=== PATIENT | male | born 1985 | race Caucasian/White ===

== ENCOUNTER 2021-11-14 19:08 | Emergency (ER) | payer OTHER, MEDICAID, SELFPAY ==
[2021-11-14 19:27] VITALS: BP 148/93; PULSE 112; RESP 20; TEMP 36.8; O2SAT 96; BMI 19.8
--- NOTE | 2021-11-14 19:35 | DI.CT.S_ITS ---
PROCEDURE: CT LUMBAR SPINE W CON INDICATIONS: recent injury after fall, now leg is weak, numb, loss bowel TECHNIQUE: After the administration of intravenous Isovue contrast, 3 mm thick sections acquired through the levels of interest. Sagittal and coronal reformats were then constructed. For radiation dose reduction, the following was used: automated exposure control. COMPARISON: Outside Film, MR, MR LUMBAR SPINE WITH/WITHOUT CONTRAST, 10/27/2021, 10:46. FINDINGS: Image quality: Excellent. Bones: There is a mild leftward curvature of the thoracolumbar spine centered at L3. Minimal retrolisthesis redemonstrated at L2-L3. No vertebral body compression fractures. No subluxation. There is a small broad-based disc bulge at L5-S1 with a focal disc extrusion eccentric to the left. There is associated narrowing of the left lateral recess with suspected mass effect on the descending left S1 nerve root. Findings are similar to the recent prior MRI. There is moderate to severe left neural foraminal narrowing at L5-S1 with mild narrowing on the right. Small disc bulges are also demonstrated at L3-L4 and L4-5 with minimal spinal canal narrowing at L4-5. Mild bilateral neural foraminal narrowing also demonstrated at L4-5. Soft tissues: There is segmental wall thickening of the rectosigmoid colon with mild pericolonic fat stranding. No intraperitoneal free fluid. The aorta is normal in caliber. Visualized lung bases are clear. IMPRESSION: 1. Focal disc extrusion eccentric to the left at L5-S1 with associated narrowing of the left lateral recess and suspected mass effect on the descending left S1 nerve root. 2. Moderate to severe left neural foraminal narrowing at L5-S1. Dictated by: Ty Lindo M.D. on 11/14/2021 at 20:48 Approved by: Ty Lindo M.D. on 11/14/2021 at 20:55
[2021-11-14 19:55] LABS: Add Manual Diff / Slide Review NO; Basophils Absolute Auto 100 /uL (0-100); Basophils Percent Auto 0.8 % (0-2); Eosinophils Absolute Auto 0 /uL (0-450); Eosinophils Percent Auto 0.3 % (2-4); Hematocrit 41.5 % (41-53); Hemoglobin 14.4 g/dL (13.5-17.5); Lymphocytes Absolute Auto 2700 /uL (1100-4500); Lymphocytes Percent Auto 24.7 % (25-40); Mean Corpuscular HGB Conc 34.7 % (30-36); Mean Corpuscular Hemoglobin 30.1 PG (26-34); Mean Corpuscular Volume 86.8 fL (80-100); Monocytes Absolute Auto 1200 /uL (0-900); Monocytes Percent Auto 10.9 % (3-14); Neutrophils Absolute Auto 6900 /uL (1500-7000); Neutrophils Percent Auto 63.3 % (50-75); Platelet Count 350 X10^3/uL (150-400); Red Blood Cell Count 4.78 X10^6/uL (4.5-5.9); White Blood Cell Count 10.8 X10^3/uL (4.5-11.0)
[2021-11-14 20:12] LABS: Alanine Aminotransferase 27 IU/L (<50); Albumin 4.7 g/dL (3.5-5.0); Albumin Globulin Ratio 1.3 (1.0-2.8); Alkaline Phosphatase 72 U/L (38-126); Aspartate Aminotransferase 54 IU/L (17-59); BUN Creatinine Ratio 22.3 (6-22); Blood Urea Nitrogen 21 mg/dL (9-20); Calcium 9.1 mg/dL (8.4-10.2); Carbon Dioxide 21 mmol/L (22-32); Chloride 105 mmol/L (98-107); Estimated Glomerular Filt Rate > 60 mL/min (>60); Globulin 3.7 g/dL (1.7-4.1); Glucose 109 mg/dL (70-100); HEMOLYSIS < 15 (0-50); Potassium 3.6 mmol/L (3.4-5.1); Sodium 139 mmol/L (137-145); Total Protein 8.4 g/dL (6.3-8.2)
[2021-11-14 20:18] LABS: Erythrocyte Sedimentation Rate 16 MM/HR (0-15)
[2021-11-14 20:55] LABS: C-Reactive Protein Quant 1.6 mg/dL (<1.0)
--- NOTE | 2021-11-15 08:34 | ED.BACK ---
HPI - Back Pain/Injury General Chief Complaint: Back Pain/Injury Stated Complaint: Back Pain Time Seen by Provider: 11/14/21 19:35 Source: patient History of Present Illness HPI Narrative: 36-year-old male former smoker with known low back problems presents with a chief complaint of worsening low back pain that now radiates into his left leg. He has got some numbness and tingling but denies any weakness. He has not lost control of bowel or bladder. He denies any fever chills and does not take blood thinners. He had recently suffered a fall and was seen and evaluated in outside facility and had advanced imaging that was reassuring. He was sent home on appropriate medications and has had orthopedic surgical consultation and suggest that he has a lumbar surgery planned. His pain is worse when he moves and improves with rest. Related Data Previous Rx's Medication Instructions Recorded gabapentin 300 mg capsule 300 mg PO BEDTIME #14 cap 11/14/21 Allergies Allergy/AdvReac Type Severity Reaction Status Date / Time Penicillins Allergy Verified 11/14/21 19:27 Review of Systems Review of Systems Narrative: GENERAL: Denies chills, fatigue, malaise, fever, sweats. HEENT: Denies sinus pain, ear pain, sore throat, difficulty swallowing, dizziness. RESPIRATORY: Denies dyspnea, cough, wheezing, hemoptysis, sputum. CARDIOVASCULAR: Denies chest pain, palpitations, orthopnea, edema, GASTROINTESTINAL: Denies nausea, vomiting, abdominal pain, diarrhea, constipation, melena. : Denies dysuria, frequency, incontinence, hematuria, urinary retention. MUSCULOSKELETAL: See HPI SKIN: Denies rash, skin lesions, or other NEUROLOGIC: See HPI n. PSYCHIATRIC: No concerning psychosocial issues. 12 point review of systems is negative except for those stated above Patient History Social History Smoking Status: Former smoker Smoking Status: Former smoker alcohol intake frequency: holidays/special occasions only Substance Use Type: marijuana Exam Narrative Exam Narrative: GENERAL: [36] year old patient appears stated age. Well-developed patient, in mild distress. Obviously uncomfortable, rubbing his lower back HEAD: Atraumatic. Normocephalic. EYES: Pupils equal round and reactive. Extraocular motions intact. No scleral icterus. No injection or drainage. ENT: Nose without bleeding, purulent drainage. Throat without erythema, tonsillar hypertrophy or exudate. Airway patent. NECK: Trachea midline. Non tender CARDIOVASCULAR: Regular rate and rhythm without murmurs, gallops, or rubs. RESPIRATORY: Clear to auscultation. Breath sounds equal bilaterally. No wheezes, rales, or rhonchi. GASTROINTESTINAL: Abdomen soft, non-tender, nondistended. EXTREMITIES: No edema or joint tenderness. 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 Patient exam notes decreased range of motion and muscle spasm, but no CVA tenderness, or vertebral point tenderness. There are no symptoms of cauda equina such as saddle anesthesia, and decreased reflexes, or strength. He does, however have some numbness in his left lateral leg NEURO: AOx3. SKIN: No rash or erythema of visible areas Initial Vital Signs Initial Vital Signs: Vital Signs Temperature 98.2 F 11/14/21 19:27 Pulse Rate 112 H 11/14/21 19:27 Respiratory Rate 20 11/14/21 19:27 Blood Pressure 148/93 H 11/14/21 19:27 Pulse Oximetry 96 11/14/21 19:27 MDM - Back Pain/Injury Lab Data Result diagrams: 11/14/21 19:40 11/14/21 19:40 Labs: Lab Results 11/14/21 11/14/21 Range/Units 19:40 19:40 WBC 10.8 (4.5-11.0) X10^3/uL RBC 4.78 (4.5-5.9) X10^6/uL Hgb 14.4 (13.5-17.5) g/dL Hct 41.5 (41-53) % MCV 86.8 (80-100) fL MCH 30.1 (26-34) PG MCHC 34.7 (30-36) % RDW 14.0 (11.6-14.8) % Plt Count 350 (150-400) X10^3/uL Neut % (Auto) 63.3 (50-75) % Lymph % (Auto) 24.7 L (25-40) % [place] % (Auto) 10.9 (3-14) % Eos % (Auto) 0.3 L (2-4) % Baso % (Auto) 0.8 (0-2) % Neut # (Auto) 6900 (2066-8653) /uL Lymph # (Auto) 2700 (5589-7561) /uL [place] # (Auto) 1200 H (0-900) /uL Eos # (Auto) 0 (0-450) /uL Baso # (Auto) 100 (0-100) /uL ESR 16 H (0-15) MM/HR Sodium 139 (137-145) mmol/L Potassium 3.6 (3.4-5.1) mmol/L Chloride 105 (98-107) mmol/L Carbon Dioxide 21 L (22-32) mmol/L BUN 21 H (9-20) mg/dL Creatinine 0.94 (0.66-1.25) mg/dL Estimated GFR > 60 (>60) mL/min BUN/Creatinine Ratio 22.3 H (6-22) Glucose 109 H (70-100) mg/dL Calcium 9.1 (8.4-10.2) mg/dL Total Bilirubin 1.0 (0.2-1.3) mg/dL AST 54 (17-59) IU/L ALT 27 (<50) IU/L Alkaline Phosphatase 72 (38-126) U/L C-Reactive Protein 1.6 H (<1.0) mg/dL Total Protein 8.4 H (6.3-8.2) g/dL Albumin 4.7 (3.5-5.0) g/dL Globulin 3.7 (1.7-4.1) g/dL Albumin/Globulin Ratio 1.3 (1.0-2.8) Imaging Data CT Lumbar: Radiologist's Impression: [place] [address] CT Scan Report Signed Patient: Javier Hampton MR#: [id number] : 1985 Acct:[id number] Age/Sex: 36 / M Date of Service: 11/14/21 Loc: ED Accession Number: [id number] ?? Procedure: CT lumbar spine w con Ordering Provider: Too Marin D.O. PROCEDURE:? CT LUMBAR SPINE W CON ? INDICATIONS:? recent injury after fall, now leg is weak, numb, loss bowel ? TECHNIQUE:? After the administration of intravenous Isovue contrast, 3 mm thick sections acquired through the levels of interest.? Sagittal and coronal reformats were then constructed.? For radiation dose reduction, the following was used:? automated exposure control.? ? COMPARISON:? Outside Film, MR, MR LUMBAR SPINE WITH/WITHOUT CONTRAST, 10/27/2021, 10:46. ? FINDINGS:? Image quality:? Excellent.? ? Bones:? There is a mild leftward curvature of the thoracolumbar spine centered at L3.? Minimal retrolisthesis redemonstrated at L2-L3.? No vertebral body compression fractures. ?No subluxation. ? There is a small broad-based disc bulge at L5-S1 with a focal disc extrusion eccentric to the left.? There is associated narrowing of the left lateral recess with suspected mass effect on the descending left S1 nerve root.? Findings are similar to the recent prior MRI.? There is moderate to severe left neural foraminal narrowing at L5-S1 with mild narrowing on the right.? Small disc bulges are also demonstrated at L3-L4 and L4-5 with minimal spinal canal narrowing at L4-5.? Mild bilateral neural foraminal narrowing also demonstrated at L4-5. ? Soft tissues:? There is segmental wall thickening of the rectosigmoid colon with mild pericolonic fat stranding.? No intraperitoneal free fluid.? The aorta is normal in caliber.? Visualized lung bases are clear. ? IMPRESSION:? ? 1. Focal disc extrusion eccentric to the left at L5-S1 with associated narrowing of the left lateral recess and suspected mass effect on the descending left S1 nerve root. ? 2. Moderate to severe left neural foraminal narrowing at L5-S1.? ? ? Dictated by: Ty Lindo M.D. on 11/14/2021 at 20:48 ? ? Approved by: Ty Lindo M.D. on 11/14/2021 at 20:55 ? MDM Narrative Medical decision making narrative: Patient with advancing lumbar radiculopathy but no signs of cauda equina or neurosurgical emergency. He has no fever or chills, and does not use blood thinners, imaging does demonstrate is likely a finding amenable to surgical intervention, patient reported reports that he has an appointment in a few days to address this. He is given contact information for local orthopedics for completeness sake. He is given extensive return precautions and has had his questions answered to his apparent satisfaction Discharge Plan Departure Patient Disposition: Home Clinical Impression: Acute left lumbar radiculopathy Instructions: DI for Back Pain With Sciatica Activity Restrictions/Additional Instructions: *You have been diagnosed with [acute lumbar radiculopathy with imaging demonstrating mass effect on your left S1 Nerve root. It is very important that you get prescriptions filled, and follow very closely with spine surgeons as this will almost surely needs surgical intervention. You suggested that you have an appointment or plan for surgery later in the week, however I will give you contact information for our spine doctors here for completeness sake. *What to do: *Please continue to take your regular medications as directed. [x ] New medication prescriptions sent to your pharmacy: [ [facility] in [place]] [ ] New medication written as a paper prescription [ ] No new medications given *Please follow up with Dr. Jaime at [facility] as soon as possible. Please call in the morning and let them know that you were seen in the emergency department and we want you seen and follow-up as soon as possible. I have electronically transmitted a copy of today's note to their office *Return to Emergency Department if you should have any new, worsening or concerning symptoms, such as [loss of control of bladder, increasing pain or weakness or other bothersome symptoms Prescriptions: New gabapentin 300 mg capsule 300 mg PO BEDTIME Qty: 14 0RF Referrals: [place] Jaime MD [Physician] - Miscellaneous,MD Murali [Primary Care Provider] -
== END 2021-11-14 21:07 | disposition home or self-care (01) ==
PROVIDERS: Emergency Provider Emergency Medicine
DX: M54.16 Radiculopathy, lumbar region (principal); W19.XXXA Unspecified fall, initial encounter
CPT/HCPCS: 36415; 72132; 80053; 85025; 85651; 86140; 87040; 99283; Q9967

== ENCOUNTER 2022-05-23 05:03 | Emergency (ER) | payer OTHER, MEDICAID, SELFPAY ==
[2022-05-23 05:10] VITALS: BP 161/105; PULSE 122; RESP 20; TEMP 36.2; O2SAT 97; BMI 20.5
--- NOTE | 2022-05-23 05:13 | ED_ITS ---
HPI - Back Pain/Injury General Chief Complaint: Back Pain/Injury Stated Complaint: back pain Time Seen by Provider: 05/23/22 05:12 History of Present Illness HPI Narrative: 36-year-old male former smoker with history of lumbar radiculopathy presents with a chief complaint of worsening low back pain. He denies any traumatic injury and has had no fever or chills. He denies the use of IV drugs or blood thinners. He denies loss of control of bowel or bladder. He denies any lower extremity numbness, weakness or tingling. Denies any footdrop. He had been seen earlier this year under relatively similar circumstances and had imaging demonstrating an S1 disc bulge. He was put on anti-inflammatories, gabapentin and steroids and referred to Orthopedics. They had stated at that time he was not a surgical candidate recommended steroid injections. He presents today with worsening pain. He denies any bending, lifting or twisting and is otherwise well and free of complaint. Related Data Previous Rx's Medication Instructions Recorded gabapentin 300 mg capsule 300 mg PO BEDTIME #14 caps 11/14/21 ketorolac 10 mg tablet 10 mg PO Q6H PRN pain #14 tabs 05/23/22 methylprednisolone 4 mg tablets in See Rx Instructions PO .COMPLEX 05/23/22 a dose pack (Medrol (Royal)) #21 ea Allergies Allergy/AdvReac Type Severity Reaction Status Date / Time Penicillins Allergy Verified 11/14/21 19:27 Review of Systems Review of Systems Narrative: GENERAL: Denies chills, fatigue, malaise, fever, sweats. HEENT: Denies sinus pain, ear pain, sore throat, difficulty swallowing, dizziness. RESPIRATORY: Denies dyspnea, cough, wheezing, hemoptysis, sputum. CARDIOVASCULAR: Denies chest pain, palpitations, orthopnea, edema, GASTROINTESTINAL: Denies nausea, vomiting, abdominal pain, diarrhea, constipation, melena. : Denies dysuria, frequency, incontinence, hematuria, urinary retention. MUSCULOSKELETAL: See HPI SKIN: Denies rash, skin lesions, or other NEUROLOGIC: See HPI PSYCHIATRIC: No concerning psychosocial issues. 12 point review of systems is negative except for those stated above Patient History Social History Smoking Status: Former smoker Smoking Status: Former smoker alcohol intake frequency: holidays/special occasions only Substance Use Type: marijuana Exam Narrative Exam Narrative: GENERAL: [36] year old patient appears stated age. Well-developed patient, in mild distress. HEAD: Atraumatic. Normocephalic. EYES: Pupils equal round and reactive. Extraocular motions intact. No scleral icterus. No injection or drainage. ENT: Nose without bleeding, purulent drainage. Throat without erythema, tonsillar hypertrophy or exudate. Airway patent. NECK: Trachea midline. Non tender CARDIOVASCULAR: Tachycardic but regular rhythm without murmurs, gallops, or rubs. RESPIRATORY: Clear to auscultation. Breath sounds equal bilaterally. No wheezes, rales, or rhonchi. GASTROINTESTINAL: Abdomen soft, non-tender, nondistended. EXTREMITIES: No edema or joint tenderness. 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 Patient exam notes decreased range of motion and muscle spasm, but no CVA tenderness, or vertebral point tenderness. There are no symptoms of cauda equina such as saddle anesthesia, and decreased reflexes, decreased sensation or strength. NEURO: AOx3. SKIN: No rash or erythema of visible areas Initial Vital Signs Initial Vital Signs: Vital Signs Temperature 97.2 F L 05/23/22 05:10 Pulse Rate 122 H 05/23/22 05:10 Respiratory Rate 20 05/23/22 05:10 Blood Pressure 161/105 H 05/23/22 05:10 Pulse Oximetry 97 05/23/22 05:10 Oxygen Delivery Method 05/23/22 05:10 Course Orders Ordered: Discontinued Medications Ketorolac Tromethamine (Ketorolac 30 Mg/Ml Vial) 30 mg IM NOW ONE Stop: 05/23/22 05:20 Last Admin: 05/23/22 05:37 Dose: 30 mg Documented By: SB Prednisone (Prednisone 20 Mg Tablet) 40 mg PO NOW ONE Stop: 05/23/22 05:20 Last Admin: 05/23/22 05:37 Dose: 40 mg Documented By: SB Vital Signs Vital signs: Vital Signs - 8 hr 05/23/22 05:10 Temperature 97.2 F L Pulse Rate 122 H Respiratory Rate 20 Blood Pressure 161/105 H Pulse Oximetry 97 Oxygen Delivery Method Room Air MDM - Back Pain/Injury MDM Narrative Medical decision making narrative: Multiple etiologies of back pain considered including; Epidural abscess, cauda equina, mass occupying lesion, and other considered, however no red flag findings consistent with neurosurgical emergency are present. Patient has known S1 disc problem and ongoing pain without radicular symptoms. He has no systemic complaints such as fever or chills. Epidural abscess and hematoma considered but thought unlikely given lack of midline pain and no use thinners or IV drugs. His heart rate is always above 110 and patient states this is not abnormal for him. His pain is well controlled, he is ambulatory and has great range of motion and movement on the cart. Return precautions discussed and questions answered to his apparent satisfaction Discharge Plan Departure Patient Disposition: Home Clinical Impression: Back pain Activity Restrictions/Additional Instructions: *You have been diagnosed with [acute on chronic lumbar pain. As we discussed your history and physical exam is reassuring and there is no evidence] *What to do: *Please continue to take your regular medications as directed. [ x] New medication prescriptions sent to your pharmacy: [ [facility] in [place]] [ ] New medication written as a paper prescription [ ] No new medications given *Please follow up with your primary care provider in 2-3 days, call for an appointment. Let them know you were seen in the Emergency Department and that we ask that you be seen in follow up. We will electronically transmit a record of today's note if your PCP is in our system *If you do not have a primary care provider please contact the [facility] Resource line at [phone]. They will ask some questions about your medical history and help get you set up with a doctor in the community. *Return to Emergency Department if you should have any new, worsening or concerning symptoms, such as [fever greater than 101 F, shaking chills, worsening pain, persistent vomiting or other bothersome symptoms] Prescriptions: New ketorolac 10 mg tablet 10 mg PO Q6H PRN (Reason: pain) Qty: 14 0RF methylprednisolone [Medrol (Royal)] 4 mg tablets,dose pack See Rx Instructions .ROUTE .COMPLEX Qty: 21 0RF Rx Instructions: orally per package directions No Action gabapentin 300 mg capsule 300 mg PO BEDTIME Qty: 14 0RF Referrals: Miscellaneous,Doctor, [Primary Care Provider] -
[2022-05-23] MEDS: predniSONE 20 MG TABLET 40 MG PO (05:37)
[2022-05-23] MEDS: KETOROLAC 30 MG/ML VIAL IM (05:37)
== END 2022-05-23 06:34 | disposition home or self-care (01) ==
PROVIDERS: Emergency Provider Emergency Medicine
DX: M54.50 Low back pain, unspecified (principal)
CPT/HCPCS: 96372; 99283; J1885